=== PATIENT | female | born 1945 | race Caucasian/White ===

== ENCOUNTER 2018-02-10 18:21 | Emergency (ER) | payer MEDICARE ==
[~2018-02-10] VITALS: Ht 172.7 cm; Wt 113.4 kg
[2018-02-10] MEDS ORDERED: ASPIRIN 81 MG CHEW TAB PO ONE (19:00)
--- NOTE | 2018-02-10 19:30 | Diagnostic Imaging Report ---
PROCEDURE: Frontal and lateral views of the chest. COMPARISON: None. INDICATIONS: DIZZINESS FINDINGS: Lines/tubes: None. Lungs: The lungs are well inflated and clear. There is no evidence of pneumonia or pulmonary edema. Pleura: There is no pleural effusion or pneumothorax. Heart and mediastinum: The heart and the mediastinum are normal. Tortuous aorta. Bones and soft tissues: No acute bony abnormality. Metallic clips in the right chest wall/axillary region. IMPRESSION: 1. No acute cardiopulmonary abnormalities. Dean Billy M.D. Dictated by: Dean Billy M.D. on 02/10/2018 at 19:33 Electronically approved by: Dean Billy M.D. on 02/10/2018 at 19:33
--- NOTE | 2018-02-10 19:42 | Diagnostic Imaging Report ---
Examination: CT head without contrast Clinical Indication: Dizziness. Lightheadedness. Syncope. Technique: Transaxial noncontrast images from the skull base through the vertex were obtained. Sagittal and coronal reformatted images were done. Comparison: None. Findings: Scalp: No abnormalities. Bones: Intact. No fractures. No blastic or lytic lesions. Brain sulci: Appropriate for patient's age. Ventricles: Normal in size and configuration. No hydrocephalus. . Extra-axial space: No abnormalities. Parenchyma: There are mild confluent areas of low-attenuation within subcortical and periventricular white matter, nonspecific, but could represent microvascular ischemic disease. No masses, hemorrhage, or acute or chronic cortical based vascular insults. Suprasellar region: No abnormalities. Craniocervical junction: The foramen magnum is patent. No Chiari one malformation. Incidental findings: Atherosclerotic calcification of the cavernous and supraclinoid internal carotid and V4 segments of the bilateral vertebral arteries. Impression: 1. No acute intracranial finding. 2. Mild chronic microvascular ischemic change. Signed by: Dr. Richelle Fernandez M.D. on 02/10/2018 7:38 PM
[2018-02-10] MEDS ORDERED: MECLIZINE HCL 12.5 MG TAB PO ONE (19:45)
[2018-02-10 19:52] LABS: BASOPHILS # (AUTO) 0.1 (0.0-0.1); BASOPHILS % 0.8 % (0.0-1.0); EOSINOPHILS # (AUTO) 0.3 (0.0-0.4); EOSINOPHILS % 2.5 % (0.0-6.0); HEMATOCRIT 43.8 % (34.2-44.1); HEMOGLOBIN 14.7 g/dL (12.0-16.0); LYMPHOCYTES # (AUTO) 2.3 (1.0-3.2); LYMPHOCYTES % 23.9 % (18.0-39.1); MEAN CORPUSCULAR HEMOGLOBIN 32.1 pg (28-32); MEAN CORPUSCULAR HGB CONC 33.6 g/dL (31-35); MEAN CORPUSCULAR VOLUME 95.6 fL (81-99); MONOCYTES # (AUTO) 0.7 (0.2-0.8); MONOCYTES % 6.9 % (4.4-11.3); NEUTROPHILS # (AUTO) 6.4 (2.1-6.9); NEUTROPHILS % 65.5 % (38.7-80.0); PLATELET COUNT 272 x10e3/uL (140-360); RED BLOOD COUNT 4.58 x10e6/uL (3.6-5.1); RED CELL DISTRIBUTION WIDTH 14.2 % (11.7-14.4)
[2018-02-10 19:58] LABS: INR 2.54; PROTHROMBIN TIME 25.7 seconds (11.9-14.5)
[2018-02-10 19:59] LABS: PARTIAL THROMBOPLASTIN TIME 48.6 seconds (23.8-35.5)
[2018-02-10 20:03] LABS: BILIRUBIN,URINE NEGATIVE (NEGATIVE); CLARITY,URINE CLEAR (CLEAR); COLOR,URINE YELLOW (YELLOW); KETONES,URINE NEGATIVE (NEGATIVE); LEUKOCYTE ESTERASE ,URINE NEGATIVE (NEGATIVE); NITRITE,URINE NEGATIVE (NEGATIVE); PROTEIN,URINE DIPSTICK NEGATIVE (NEGATIVE); URINE UROBILINOGEN 0.2 mg/dL (0.2 - 1)
[2018-02-10 20:04] LABS: EPITHELIAL CELLS,URINE FEW /LPF; RBC,URINE 0-5 /HPF (0-5); WBC,URINE (MAN) 0-5 /HPF (0-5)
[2018-02-10 20:08] LABS: ALANINE AMINOTRANSFERASE 15 IU/L (0-55); ALBUMIN 4.2 g/dL (3.5-5.0); ALBUMIN/GLOBULIN RATIO 1.3 (0.8-2.0); ALKALINE PHOSPHATASE 78 IU/L (40-150); ANION GAP 14.2 mmol/L (8-16); BLOOD UREA NITROGEN 25 mg/dL (7-26); BUN/CREATININE RATIO 27 (6-25); CALCIUM 10.2 mg/dL (8.4-10.2); CARBON DIOXIDE 26 mmol/L (22-29); CHLORIDE 105 mmol/L (98-107); CREATINE KINASE 100 IU/L (29-168); CREATININE, SERUM 0.94 mg/dL (0.57-1.11); EST GLOMERULAR FILTRATION RATE 58 ML/MIN (60-); GLUCOSE 101 mg/dL (74-118); POTASSIUM 4.2 mmol/L (3.5-5.1); SODIUM 141 mmol/L (136-145)
[2018-02-10 20:27] LABS: THYROID STIMULATING HORMONE 2.076 uIU/mL (0.350-4.940)
== END 2018-02-10 20:56 | disposition home or self-care (01) ==
LOC: ER 18:21
DX: R42 Dizziness and giddiness (principal); H81.12 Benign paroxysmal vertigo, left ear
CPT/HCPCS: 36415; 70450; 71046; 80053; 81001; 82550; 82553; 83735; 84443; 84484; 85025; 85610; 85730; 93005; 99284

== ENCOUNTER 2024-04-27 10:53 | Observation (INO) | payer MEDICARE ==
[2024-04-27] VITALS (9 sets, daily range): BP systolic 101–123; BP diastolic 58–69; PULSE 73–89; RESP 16–20; TEMP 97.4–98.4; O2SAT 95–100
[~2024-04-27] VITALS: Ht 167.6 cm; Wt 97.1 kg
[2024-04-27 11:49] LABS: BASOPHILS # (AUTO) 0.1 (0.0-0.1); EOSINOPHILS # (AUTO) 0.1 (0.0-0.4); EOSINOPHILS % 2.4 % (0.0-6.0); HEMATOCRIT 41.6 % (34.2-44.1); HEMOGLOBIN 13.4 g/dL (12.0-16.0); LYMPHOCYTES # (AUTO) 1.5 (1.0-3.2); LYMPHOCYTES % 25.6 % (18.0-39.1); MEAN CORPUSCULAR HEMOGLOBIN 33.1 pg (28-32); MEAN CORPUSCULAR HGB CONC 32.2 g/dL (31-35); MEAN CORPUSCULAR VOLUME 102.7 fL (81-99); MONOCYTES # (AUTO) 0.5 (0.2-0.8); MONOCYTES % 9.2 % (4.4-11.3); NEUTROPHILS # (AUTO) 3.5 (2.1-6.9); NEUTROPHILS % 61.5 % (38.7-80.0); PLATELET COUNT 245 x10e3/uL (140-360); RED BLOOD COUNT 4.05 x10e6/uL (3.6-5.1); RED CELL DISTRIBUTION WIDTH 15.4 % (11.7-14.4); WHITE BLOOD COUNT 5.75 x10e3/uL (4.8-10.8)
[2024-04-27 11:52] LABS: BILIRUBIN,URINE NEGATIVE (NEGATIVE); CLARITY,URINE CLEAR (CLEAR); COLOR,URINE YELLOW (YELLOW); GLUCOSE, URINE NEGATIVE (NEGATIVE); KETONES,URINE NEGATIVE (NEGATIVE); LEUKOCYTE ESTERASE ,URINE NEGATIVE (NEGATIVE); NITRITE,URINE NEGATIVE (NEGATIVE); PH,URINE 7 (5 - 7); PROTEIN,URINE DIPSTICK NEGATIVE (NEGATIVE); URINE UROBILINOGEN 0.2 mg/dL (0.2 - 1)
[2024-04-27 12:03] LABS: BACTERIA,URINE FEW /HPF; EPITHELIAL CELLS,URINE FEW /LPF; RBC,URINE 0-5 /HPF (0-5); WBC,URINE (MAN) 0-5 /HPF (0-5)
[2024-04-27 12:07] LABS: INR 2.58; PARTIAL THROMBOPLASTIN TIME 43.6 seconds (23.8-35.5); PROTHROMBIN TIME 28.9 seconds (11.9-14.5)
[2024-04-27 12:08] LABS: ALBUMIN 3.9 g/dL (3.5-5.0); ALBUMIN/GLOBULIN RATIO 1.1 (0.8-2.0); ANION GAP 15.8 mmol/L (8-16); BILIRUBIN,TOTAL 0.6 mg/dL (0.2-1.2); CALCIUM 9.6 mg/dL (8.4-10.2); CREATININE, SERUM 1.55 mg/dL (0.57-1.11); MAGNESIUM 2.3 MG/DL (1.3-2.1); POTASSIUM 3.8 mmol/L (3.5-5.1); TOTAL PROTEIN 7.3 g/dL (6.5-8.1)
[2024-04-27 12:14] LABS: TROPONIN I 0.015 ng/mL (0-0.300)
[2024-04-27] MEDS ORDERED: ALBUTEROL/IPRATROPIUM 3 ML NEB NEB PRN (13:00)
[2024-04-27] MEDS: NICOTINE 21 MG/EA PATCH TOP PRN (15:52)
[2024-04-27] MEDS: SODIUM CHLORIDE 0.9% 500ML 500 ML IV ONE (16:12)
[2024-04-27] MEDS ORDERED: ACETAMINOPHEN 325 MG TAB PO PRN (16:45)
[2024-04-27] MEDS ORDERED: ONDANSETRON HCL INJ 2MG/ML 2ML 2 MG/ML VIAL IV PRN (16:45)
[2024-04-27] MEDS ORDERED: HYDRALAZINE HCL 20 MG/ML VIAL IV PRN (16:45)
[2024-04-27 17:59] LABS: TROPONIN I 0.015 ng/mL (0-0.300)
[2024-04-27] MEDS ORDERED: ATENOLOL25 MG (18:01)
[2024-04-27] MEDS ORDERED: BACLOFEN20 MG (18:01)
[2024-04-27] MEDS ORDERED: HYDROCODON-ACE1 EA11 (18:01)
[2024-04-27] MEDS ORDERED: ATORVASTATIN CA40 MG (18:01)
[2024-04-27] MEDS ORDERED: WARFARIN SODIUM5 MG (18:01)
[2024-04-27] MEDS ORDERED: ADVAIR HFA 230-12 GM (18:01)
[2024-04-27] MEDS ORDERED: FUROSEMIDE20 MG (18:01)
[2024-04-27] MEDS ORDERED: TORSEMIDE20 MG (18:01)
[2024-04-27] MEDS ORDERED: FENOFIBRATE160 MG (18:01)
[2024-04-27] MEDS: WARFARIN SOD 3 MG TAB PO SCH (18:54)
[2024-04-28 03:45] VITALS: BP 112/64; PULSE 75; RESP 18; TEMP 97.5; O2SAT 98
[2024-04-28 06:02] LABS: BASOPHILS % 0.5 % (0.0-1.0); EOSINOPHILS # (AUTO) 0.2 (0.0-0.4); EOSINOPHILS % 3.3 % (0.0-6.0); HEMATOCRIT 38.7 % (34.2-44.1); HEMOGLOBIN 12.4 g/dL (12.0-16.0); LYMPHOCYTES # (AUTO) 1.6 (1.0-3.2); LYMPHOCYTES % 26.4 % (18.0-39.1); MEAN CORPUSCULAR HEMOGLOBIN 33.2 pg (28-32); MEAN CORPUSCULAR VOLUME 103.8 fL (81-99); MONOCYTES # (AUTO) 0.5 (0.2-0.8); MONOCYTES % 8.6 % (4.4-11.3); NEUTROPHILS # (AUTO) 3.7 (2.1-6.9); NEUTROPHILS % 60.9 % (38.7-80.0); PLATELET COUNT 211 x10e3/uL (140-360); RED BLOOD COUNT 3.73 x10e6/uL (3.6-5.1); RED CELL DISTRIBUTION WIDTH 15.2 % (11.7-14.4); WHITE BLOOD COUNT 6.06 x10e3/uL (4.8-10.8)
[2024-04-28 06:27] LABS: TROPONIN I 0.03 ng/mL (0-0.300)
[2024-04-28 06:40] LABS: ALBUMIN 3.2 g/dL (3.5-5.0); ALBUMIN/GLOBULIN RATIO 1.2 (0.8-2.0); ANION GAP 14.3 mmol/L (8-16); BILIRUBIN,TOTAL 0.7 mg/dL (0.2-1.2); CALCIUM 8.7 mg/dL (8.4-10.2); CHOL/HDL RATIO 3.9 (3.0-3.6); CREATININE, SERUM 1.18 mg/dL (0.57-1.11); TOTAL PROTEIN 5.9 g/dL (6.5-8.1)
[2024-04-28 06:47] LABS: POTASSIUM 3.3 mmol/L (3.5-5.1)
[2024-04-28 06:50] VITALS: PULSE 82; RESP 18; O2SAT 96
== END 2024-04-28 08:10 | disposition left against medical advice (07) ==
LOC: ER 11:00 → ERHOLD 13:01 → MED/SURG2 16:59
PROVIDERS: ADMIT Internal Medicine; ATTEND Internal Medicine
DX: T50.1X5A Adverse effect of loop [high-ceiling] diuretics, initial encounter (principal); N17.9 Acute kidney failure, unspecified; R60.0 Localized edema; I48.91 Unspecified atrial fibrillation; Z79.01 Long term (current) use of anticoagulants; M54.9 Dorsalgia, unspecified; Z85.3 Personal history of malignant neoplasm of breast; F17.210 Nicotine dependence, cigarettes, uncomplicated; Z90.10 Acquired absence of unspecified breast and nipple; R06.2 Wheezing; E78.00 Pure hypercholesterolemia, unspecified; Y92.019 Unspecified place in single-family (private) house as the place of occurrence of the external cause
CPT/HCPCS: 36415 ×2; 71045; 80053 ×2; 80061; 81001; 82550 ×2; 83735; 83880; 84484 ×2; 85025 ×2; 85610; 85730; 87086; 93005; 93306; 93971; 94799 ×2; 99284; G0378 ×2; J7040